=== PATIENT | female | born 1975 | race African-American/Black ===

== ENCOUNTER 2018-05-31 06:55 | Inpatient (IN) | payer BC ==
[2018-05-31] MEDS ORDERED: ANCEF/STERILE WATER 2 GM/20 ML 2 GM/20 ML SYRINGE IV ONE (07:48)
[2018-05-31] MEDS ORDERED: PITOCin/NS 20 UNIT/1000ML DRIP 20,000 MILLIUNITS/1,000 ML BAG IV ONE (07:48)
[2018-05-31] MEDS ORDERED: BICITRA PO NR (08:00)
[2018-05-31] MEDS ORDERED: PITOCin/NS 20 UNIT/1000ML DRIP 20 UNITS/1,000 ML BAG IV SCH ×2 (08:00→14:00)
[2018-05-31] MEDS: LACTATED RINGERS 1,000 ML IV SCH ×3 (08:00→11:22)
[2018-05-31] MEDS ORDERED: PEPCID IV NR (08:00)
[2018-05-31] MEDS ORDERED: REGLAN IV NR (08:00)
[2018-05-31 08:17] LABS: Basophils % (Auto) 0.5 % (0.0-1.8); Eosinophils # (Auto) 0.1 K/mm3 (0.0-0.4); Eosinophils % (Auto) 1.3 % (0.0-4.3); Hematocrit 40.6 % (30.3-42.9); Hemoglobin 14.1 gm/dl (10.1-14.3); Lymphocytes # (Auto) 1.8 K/mm3 (1.2-5.4); Lymphocytes % (Auto) 23.7 % (13.4-35.0); Mean Corpuscular HGB Conc 35 % (30-34); Mean Corpuscular Volume 91 fl (79-97); Monocytes # (Auto) 0.7 K/mm3 (0.0-0.8); Monocytes % (Auto) 8.7 % (0.0-7.3); Platelet Count 279 K/mm3 (140-440); Red Blood Count 4.47 M/mm3 (3.65-5.03); Red Cell Distribution Width 16.3 % (13.2-15.2)
--- NOTE | 2018-05-31 08:38 | History and Physical Report ---
History of Present Illness Date of examination: 05/31/18 Date of admission: 05/31/18 06:55 Chief complaint: Repeat C Section History of present illness: Pt is a 42yo AF EDC 06/12/18; EGA presents for repeat C Section per [facility] due to macrosomia. She received care at [facility] since 13 weeks and co-managed by [facility] for AMA and GDM - controlled with oral glycemic agent. records are available and GBS is Negative. Past History Past Medical History: diabetes Past Surgical History: section Family/Genetic History: none Social history: no significant social history, - Obstetrical History Expected Date of Delivery: 06/12/18 Actual Gestation: 38 Week(s) 3 Day(s) Medications and Allergies Allergies Allergy/AdvReac Type Severity Reaction Status Date / Time No Known Allergies Allergy Verified 05/31/18 07:42 Home Medications Medication Instructions Recorded Confirmed Last Taken Type Pnv,Calcium 72/Iron/Folic Acid 1 tab PO DAILY 05/31/18 05/31/18 1 Day Ago History [ Vitamin Plus Low Iron] ~05/30/18 1 glyBURIDE [Diabeta] 1 tab PO QHS 05/31/18 05/31/18 1 Day Ago History ~05/30/18 1 Active Meds: Active Medications Citric Acid/Sodium Citrate (Bicitra) 30 ml PO ONCE NR Stop: 05/31/18 17:00 Famotidine (Pepcid) 20 mg IV ONCE NR Stop: 05/31/18 17:00 Lactated Ringer's (Lactated Ringers) 1,000 mls @ 2,250 mls/hr IV PREOP NICOLE Stop: 06/01/18 08:27 Oxytocin/Sodium Chloride (Pitocin/Ns 20 Unit/1000ml Drip) 20 units in 1,000 mls @ 0 mls/hr IV TITR NICOLE Metoclopramide HCl (Reglan) 10 mg IV ONCE NR Stop: 05/31/18 17:00 Review of Systems All systems: negative - Physical Exam Breasts: Positive: deferred Cardiovascular: Regular rate Lungs: Positive: Clear to auscultation Abdomen: Positive: normal appearance Genitourinary (Female): Positive: normal external genitalia Vagina: Positive: normal moisture Uterus: Positive: enlarged Extremities: Positive: normal - Obstetrical FHR: category 1 Uterine Contraction Monitor Mode: External Results Result Diagrams: 06/01/18 01:13 Abnormal lab results 05/31/18 Range/Units 08:00 MCHC 35 H (30-34) % RDW 16.3 H (13.2-15.2) % [place] % (Auto) 8.7 H (0.0-7.3) % All other labs normal. Assessment and Plan - Patient Problems (1) 38 weeks gestation of Onset Date: 05/31/18 Current Visit: Yes Status: Resolved (2) GDM (gestational diabetes mellitus) Onset Date: 05/31/18 Current Visit: Yes Status: Resolved Qualifiers: Gestational diabetes mellitus control: oral hypoglycemic-controlled Trimester: third trimester Qualified Code(s): O24.415 - Gestational diabetes mellitus in , controlled by oral hypoglycemic drugs (3) macrosomia Onset Date: 05/31/18 Current Visit: Yes Status: Resolved Qualifiers: Fetus number: single or unspecified fetus Trimester: third trimester Qualified Code(s): O36.63X0 - Maternal care for excessive growth, third trimester, not applicable or unspecified (4) Previous section Onset Date: 05/31/18 Current Visit: Yes Status: Resolved
--- NOTE | 2018-05-31 09:25 | Anesthesia Consultation ---
Anesthesia Consult and Med Hx Date of service: 05/31/18 - Airway Anesthetic Teeth Evaluation: Good ROM Head & Neck: Adequate Mental/Hyoid Distance: Adequate Mallampati Class: Class I Intubation Access Assessment: Good - Pulmonary Exam CTA: Yes - Cardiac Exam Cardiac Exam: RRR - Pre-Operative Health Status ASA Pre-Surgery Classification: ASA2 Proposed Anesthetic Plan: Spinal - Pulmonary Hx Smoking: No Hx Asthma: No Hx Respiratory Symptoms: No SOB: No COPD: No Home Oxygen Therapy: No Hx Pneumonia: No Hx Sleep Apnea: No - Cardiovascular System Hx Hypertension: No Hx Coronary Artery Disease: No Hx Heart Attack/AMI: No Hx Angina: No Hx Percutaneous Transluminal Coronary Angioplasty (PTCA): No Hx Cardia Arrhythmia: No Hx Pacemaker: No Hx Internal Defibrillator: No Hx Valvular Heart Disease: No Hx Heart Murmur: No Hx Peripheral Vascular Disease: No - Central Nervous System Hx Neuromuscular Disorder: No Hx Seizures: No CVA: No Hx Back Pain: No Hx Psychiatric Problems: No - Gastrointestinal Hx Ulcer: No Hx Gastroesophageal Reflux Disease: No - Endocrine Hx Renal Disease: No Hx End Stage Renal Disease: No Hx Cirrhosis: No Hx Liver Disease: No Hx Insulin Dependent Diabetes: No Hx Non-Insulin Dependent Diabetes: No Hx Thyroid Disease: No Hx Hypothyroidism: No Hx Hyperthyroidism: No - Hematic Hx Anemia: No Hx Sickle Cell Disease: No - Other Systems Hx Alcohol Use: No Hx Substance Use: No Hx Cancer: No Hx Obesity: No
--- NOTE | 2018-05-31 09:26 | Anesthesia Day of Surgery ---
Anesthesia Day of Surgery - Day of Surgery Patient Examined: Yes Patient H&P Reviewed: Yes Patient is NPO: Yes Beta Blockers: No Cardiac Clearance: No Pulmonary Clearance: No Jung's Test: N/A
[2018-05-31] MEDS ORDERED: SODIUM CHLORIDE FLUSH SYRINGE 10 ML IV PRN (10:00)
[2018-05-31] MEDS ORDERED: fentaNYL-BUPIV 2 MCG/ML-0.125% 200 MCG/100 ML BAG EPIDURAL SCH (10:00)
[2018-05-31] MEDS ORDERED: PHENERGAN PR PRN (10:30)
[2018-05-31] MEDS ORDERED: ZOFRAN IV PRN (10:30)
[2018-05-31] MEDS ORDERED: PHENERGAN PO PRN (10:30)
[2018-05-31] MEDS ORDERED: NARCAN 0.4 MG/1 ML IV PRN ×2 (10:30→13:42)
[2018-05-31] MEDS ORDERED: SUBLIMAZE ONE (12:33)
[2018-05-31] MEDS ORDERED: ANCEF/STERILE WATER 2 GM/20 ML IV ONE (12:40)
[2018-05-31] MEDS ORDERED: WATER FOR IRRIG STERILE IR ONE (12:48)
[2018-05-31] MEDS ORDERED: NACL 0.9% IR ONE (12:48)
[2018-05-31] MEDS ORDERED: ZOFRAN ONE (13:15)
[2018-05-31] MEDS ORDERED: SENSORCAINE/DEXTR 0.75-8.25% INFILTRATI ONE (13:16)
[2018-05-31] MEDS ORDERED: NEO SYNEPHRINE/NS Syringe(OR USE) IV ONE (13:16)
--- NOTE | 2018-05-31 13:37 | Operative Report ---
Operative Report Operative Report: Date of procedure: 05/31/2018 Pre-operative diagnosis: 1. Intrauterine at 38-2/7 weeks 2. Previ ous 3. Gestational diabetes mellitus 4. macrosomia Post-operative diagnosis: Same Procedure name(s): Repeat low transverse section Surgeon: Chun Montague MD Automatic Pattern Edger: None Anesthesia: Spinal anesthesia by Donny Finn CRNA EBL: 650 mL Findings: A 5338 g male infant Apgars 8 at 1 minute 9 at 5 minutes. 1+ meconium fluid. Normal uterus. Normal tubes and ovaries bilaterally. Procedure: After the patient was prepped and draped in usual sterile fashion, and after satisfactory level of epidural anesthesia was obtained, the skin knife was used to make a transverse skin incision through the previous skin scar. The incision was excised down to layer of the fascia, which was nicked in the midline and extended laterally using the Bovie cautery. The rectus muscles were dissected off the rectus fascia both superiorly and inferiorly. The rectus bellies in the midline, and the peritoneum was entered under direct visualization. The peritoneal incision was extended superiorly and inferiorly. A bladder flap was created and the bladder blade was then placed. The uterus was scored in a curvilinear linear fashion, entered in the midline revealing 1+ meconium amniotic fluid. The 's head was delivered onto the surgical field with the aid of a vacuum, and the oropharynx and nasopharynx were bulb suctioned. The rest of the infant's body was delivered, cord was doubly clamped and cut and the infant was handed to the waiting respiratory team. Cord blood was then obtained. The placenta was manually removed from the uterus, and the uterus removed from its normal anatomical position. After gentle uterine lavage, the incision was inspected and found to be without extensions. It was then closed in 2 layers using 0 Vicryl suture in a running interlocking fashion, the second layer imbricating the first. After good hemostasis was achieved, copious amounts or irrigation was performed, and the gutters were suctioned free of blood and blood clots. The Tisseel sealant was sprayed across the uterine incision. The uterus was then returned to its normal anatomical position, and after excellent hemostasis assured, the peritoneum was re-approximated using 3-0 Vicryl suture in a running interlocking fashion, and then the rectus muscles were re-approximated using 3-0 Vicryl suture in a [id number] configuration. The fascia was then re-approximated using 0 Vicryl suture in running interlocking fashion. The subcutaneous layer was made hemostatic using Bovie cautery, the Tisseel sealant was sprayed across the fascial incision and the skin edges re-approximated using 4-0 Vicryl suture in a sub-cuticular fashion. Patient tolerated the procedure well was transported to recovery in stable condition.
[2018-05-31] MEDS ORDERED: TYLENOL PO PRN (13:42)
[2018-05-31] MEDS ORDERED: TORADOL IV PRN (13:42)
[2018-05-31] MEDS ORDERED: NORCO 5/325 PO PRN (13:42)
[2018-05-31] MEDS ORDERED: SENOKOT PO PRN (13:42)
[2018-05-31] MEDS ORDERED: TUCKS PAD TP PRN (13:42)
[2018-05-31] MEDS ORDERED: MILK OF MAGNESIA PO PRN (13:42)
[2018-05-31] MEDS ORDERED: MYLICON PO PRN (13:42)
[2018-05-31] MEDS ORDERED: D50W (25GM) Syringe IV PRN (13:42)
[2018-05-31] MEDS ORDERED: LANSINOH TP PRN (13:42)
[2018-05-31] MEDS ORDERED: IBUPROFEN PO PRN (13:42)
[2018-05-31] MEDS ORDERED: ANCEF/NS 1 GM/50 ML 1 GM/50 ML BAG IV SCH (14:00)
[2018-05-31] MEDS ORDERED: D5LR 1,000 ML IV SCH (14:00)
[2018-05-31] MEDS ORDERED: SODIUM CHLORIDE FLUSH SYRINGE 10 ML IV NR (14:00)
--- NOTE | 2018-05-31 20:07 | Post Anesthesia Evaluation ---
- Post Anesthesia Evaluation Patient Participated: Yes Airway Patent: Yes Stable Respiratory Function: Yes Nausea/Vomiting: No Temp > 96.8F: Yes Pain Manageable: Yes Adequeate Hydration: Yes Anesthesia Complications: No Block Receding Appropriately: Yes Patient on Ventilator: No
[2018-06-01 01:32] LABS: Hematocrit 40.4 % (30.3-42.9); Hemoglobin 13.5 gm/dl (10.1-14.3)
[2018-06-01] MEDS: PERCOCET 5/325 PO PRN ×3 (02:21→22:48)
[2018-06-01] MEDS: ANCEF/NS 1 GM/50 ML 1 GM/50 ML BAG IV SCH ×2 (03:39→11:00)
[2018-06-01] MEDS ORDERED: FEOSOL PO SCH (10:00)
[2018-06-01] MEDS ORDERED: PRENATAL VITAMIN PO SCH (10:00)
--- NOTE | 2018-06-01 11:14 | Progress Note ---
Assessment and Plan - Patient Problems (1) 38 weeks gestation of Onset Date: 05/31/18 Current Visit: Yes Status: Resolved (2) GDM (gestational diabetes mellitus) Onset Date: 05/31/18 Current Visit: Yes Status: Resolved Qualifiers: Gestational diabetes mellitus control: oral hypoglycemic-controlled Tr imester: third trimester Qualified Code(s): O24.415 - Gestational diabetes mellitus in , controlled by oral hypoglycemic drugs (3) macrosomia Onset Date: 05/31/18 Current Visit: Yes Status: Resolved Qualifiers: Fetus number: single or unspecified fetus Trimester: third trimester Qualified Code(s): O36.63X0 - Maternal care for excessive growth, third trimester, not applicable or unspecified (4) Previous section Onset Date: 05/31/18 Current Visit: Yes Status: Resolved (5) Status post Onset Date: 06/01/18 Current Visit: Yes Status: Resolved Plan to address problem: A: S/P Repeat C Section - POD #1 Doing well P: Continue RPOC Anticipate discharge in 24-48hrs Subjective - Subjective Date of service: 06/01/18 Principal diagnosis: s/p C Section - POD #1 Interval history: Pt is feeling well without complaints. Bleeding improved. Patient reports: appetite normal, voiding normally, pain well controlled, flatus, ambulating normally, no dizzy ambulation, no nauseated : doing well, nursing well, bottle feeding Objective - Vital Signs Latest vital signs: Vital Signs Temp Pulse Resp BP BP Pulse Ox 06/01/18 09:44 97.9 F 72 24 125/68 93 06/01/18 09:16 20 06/01/18 05:23 98.6 F 67 16 120/70 06/01/18 02:21 16 06/01/18 01:44 98.3 F 74 18 107/61 95 05/31/18 21:05 98.2 F 85 20 143/82 95 05/31/18 15:09 97.4 F L 20 148/88 05/31/18 14:35 97.9 F 76 18 121/68 99 05/31/18 14:25 75 15 120/69 100 05/31/18 14:10 67 18 118/71 99 05/31/18 13:55 60 17 102/50 98 05/31/18 13:50 70 16 104/58 05/31/18 13:44 72 15 99/52 98 05/31/18 13:39 73 17 98/50 99 05/31/18 13:34 97.6 F 78 17 102/50 94 Intake and Output 05/31/18 06/01/18 06/01/18 22:59 06:59 14:59 Intake Total 240 240 360 Output Total 1600 1200 800 Balance -6450 -960 -440 Intake: Intake, Free Water 240 240 360 Output: Urine 1600 1200 800 Indwelling Catheter 1600 1200 Void 800 Other: Total, Output Amount 800 1200 800 - Exam Breasts: Present: deferred Abdomen: Present: normal appearance, soft Uterus: Present: normal, firm, fundal height below umbilicus Extremities: Present: normal Incision: Present: normal, dry, intact, dressed - Labs Labs: Abnormal lab results 05/31/18 Range/Units 21:43 POC Glucose 61 L (70-105) Laboratory Tests 05/31/18 05/31/18 05/31/18 08:00 08:00 08:00 WBC 7.6 RBC 4.47 Hgb 14.1 Hct 40.6 MCV 91 MCH 32 MCHC 35 H RDW 16.3 H Plt Count 279 Lymph % (Auto) 23.7 [place] % (Auto) 8.7 H Eos % (Auto) 1.3 Baso % (Auto) 0.5 Lymph # 1.8 [place] # 0.7 Eos # 0.1 Baso # 0.0 Seg Neutrophils % 65.8 Seg Neutrophils # 5.0 POC Glucose RPR Nonreactive Blood Type O POSITIVE Antibody Screen Negative 05/31/18 05/31/18 06/01/18 09:18 21:43 01:13 WBC RBC Hgb 13.5 Hct 40.4 MCV MCH MCHC RDW Plt Count Lymph % (Auto) [place] % (Auto) Eos % (Auto) Baso % (Auto) Lymph # [place] # Eos # Baso # Seg Neutrophils % Seg Neutrophils # POC Glucose 77 61 L RPR Blood Type Antibody Screen 06/01/18 07:50 WBC RBC Hgb Hct MCV MCH MCHC RDW Plt Count Lymph % (Auto) [place] % (Auto) Eos % (Auto) Baso % (Auto) Lymph # [place] # Eos # Baso # Seg Neutrophils % Seg Neutrophils # POC Glucose 79 RPR Blood Type Antibody Screen
[2018-06-01] MEDS ORDERED: BOOSTRIX IM ONE (13:43)
[2018-06-01] MEDS ORDERED: M-M-R II VACCINE SUB-Q ONE (13:43)
[2018-06-02] MEDS: PERCOCET 5/325 PO PRN (04:22)
--- NOTE | 2018-06-02 09:07 | Progress Note ---
Assessment and Plan - Patient Problems (1) 38 weeks gestation of Onset Date: 05/31/18 Current Visit: Yes Status: Resolved (2) GDM (gestational diabetes mellitus) Onset Date: 05/31/18 Current Visit: Yes Status: Resolved Qualifiers: Gestational diabetes mellitus control: oral hypoglycemic-controlled Tr imester: third trimester Qualified Code(s): O24.415 - Gestational diabetes mellitus in , controlled by oral hypoglycemic drugs (3) macrosomia Onset Date: 05/31/18 Current Visit: Yes Status: Resolved Qualifiers: Fetus number: single or unspecified fetus Trimester: third trimester Qualified Code(s): O36.63X0 - Maternal care for excessive growth, third trimester, not applicable or unspecified (4) Previous section Onset Date: 05/31/18 Current Visit: Yes Status: Resolved (5) Status post Onset Date: 06/01/18 Current Visit: Yes Status: Resolved Plan to address problem: A: S/P Repeat C Section - POD #2 Doing well GDM - stable P: May go home today. Subjective - Subjective Date of service: 06/02/18 Principal diagnosis: s/p C Section - POD #2 Interval history: Pt is feeling well without complaints. She is tolerating a reg diet without nausea or vomiting, ambulating and voiding without difficulty. Wants to go home. Patient reports: appetite normal, voiding normally, pain well controlled, flatus, ambulating normally, no dizzy ambulation, no nauseated : doing well, nursing well, bottle feeding Objective - Vital Signs Latest vital signs: Vital Signs Temp Pulse Resp BP BP Pulse Ox 06/02/18 07:47 98.1 F 62 18 111/66 94 06/02/18 00:00 98.2 F 72 20 119/88 06/01/18 17:25 98.0 F 66 20 109/64 93 06/01/18 12:17 98.0 F 73 20 135/83 96 06/01/18 10:16 20 06/01/18 09:44 97.9 F 72 24 125/68 93 06/01/18 09:16 20 Intake and Output 06/01/18 06/02/18 06/02/18 22:59 06:59 14:59 Intake Total 240 240 Balance 240 240 Intake: Oral 240 240 Other: Total, Intake Amount 240 240 # Voids Void 1 1 - Exam Breasts: Present: deferred Abdomen: Present: normal appearance, soft Uterus: Present: normal, firm, fundal height below umbilicus Incision: Present: normal, dry, intact
--- NOTE | 2018-06-02 09:24 | Discharge Summary ---
Providers - Providers Date of Admission: 05/31/18 06:55 Date of discharge: 06/02/18 Attending physician: NIHARIKA ORNELAS Primary care physician: NIHARIKA ORNELAS Hospitalization Reason for admission: section, IUP at term, other (Gestational Diabetes Mellitus; macrosomia) Delivery: Procedure: section, repeat low transverse Episiotomy: none Incision: normal, dry, intact Other procedures: none complications: none Discharge diagnosis: IUP at term delivered [place] baby: male Hospital course: Pt is a 42yo AF EDC 06/12/18; EGA 38 2/7 weeks who presented for repeat C Section per [facility] due to macrosomia. She received care at [facility] since 13 weeks and co-managed by [facility] for AMA and GDM - controlled with oral glycemic agent. Her EFW was > 5000gms. She underwent an uncomplicated Repeat C Section and delivered a 5338gm male . Post operative course was unremarkable. By POD #2 she was tolerating a reg diet without nausea or vomiting, ambulating and voiding without difficulty. She was therefore discharged to home on POD #2 in stable condition. Condition at discharge: Good Disposition: DC-01 TO HOME OR SELFCARE - Discharge Diagnoses (1) 38 weeks gestation of Status: Resolved (2) GDM (gestational diabetes mellitus) Status: Resolved Qualifiers: Gestational diabetes mellitus control: oral hypoglycemic-controlled Trimester: third trimester Qualified Code(s): O24.415 - Gestational diabetes mellitus in , controlled by oral hypoglycemic drugs (3) macrosomia Status: Resolved Qualifiers: Fetus number: single or unspecified fetus Trimester: third trimester Qualified Code(s): O36.63X0 - Maternal care for excessive growth, third trimester, not applicable or unspecified (4) Previous section Status: Resolved (5) Status post Status: Resolved Plan - Discharge Medications Prescriptions: Ferrous Sulfate [Feosol 325 MG tab] 325 mg PO QDAY #30 tablet Ibuprofen [Motrin 800 MG tab] 800 mg PO Q6H PRN #30 tablet PRN Reason: Pain, Mild (1-3) oxyCODONE /ACETAMINOPHEN [Percocet 5/325 mg] 1 tab PO Q6H PRN #30 tablet PRN Reason: Pain, Moderate (4-6) Vit-Fe Fumar-FA [ Vitamin] 1 each PO QDAY #30 tablet - Provider Discharge Summary Activity: routine, no sex for 6 weeks, no heavy lifting 4 weeks, no strenuous exercise Diet: routine Instructions: routine Additional instructions: [] Smoking cessation referral if applicable(refer to patient education folder for contact #) [] Refer to [facility]'s [facility] Booklet Call your doctor immediately for: * Fever > 100.5 * Heavy vaginal bleeding ( >1 pad per hour) * Severe persistent headache * Shortness of breath * Reddened, hot, painful area to leg or breast * Drainage or odor from incision. * Keep incision clean and dry at all times and follow doctor's instructions regarding bathing/showering - Follow up plan Follow up: NIHARIKA ORNELAS MD [Primary Care Provider] - 14 Days
[2018-06-02 14:45] VITALS: BP 137/88
== END 2018-06-02 15:40 | disposition home or self-care (01) | DRG 788 ==
LOC: APU 06:55 → OB 15:39
PROVIDERS: ADMIT Obstetrics & Gynecology; ATTEND Obstetrics & Gynecology
PROC: 10D00Z1 Extraction of Products of Conception, Low, Open Approach (ICD-10-PCS; principal; 2018-05-31)
DX: O24.425 Gestational diabetes mellitus in childbirth, controlled by oral hypoglycemic drugs (principal); O77.0 Labor and delivery complicated by meconium in amniotic fluid; O34.211 Maternal care for low transverse scar from previous cesarean delivery; O36.60X0 Maternal care for excessive fetal growth, unspecified trimester, not applicable or unspecified; Z3A.38 38 weeks gestation of pregnancy; Z37.0 Single live birth
CPT/HCPCS: 36415; 82962; 85014; 85018; 85025; 86592; 86850; 86900; 86901; G0378; C9250; J0690; J1885; J2370; J2405; J2590; J2765; J3010; J7120